=== PATIENT | male | born 1965 | race Two or more races ===

== ENCOUNTER 2020-04-29 17:58 | Emergency (ER) | payer MEDICAID ==
[~2020-04-29] VITALS: Ht 172.7 cm; Wt 81.0 kg
[2020-04-29 18:00] VITALS: BP 181/78
[2020-04-29] MEDS ORDERED: ACETAMINOPHEN 325MG TABLET PO STA (18:36)
== END 2020-04-29 20:33 | disposition home or self-care (01) ==
LOC: ER 17:58
DX: S09.8XXA Other specified injuries of head, initial encounter (principal); Y08.89XA Assault by other specified means, initial encounter; Y93.89 Activity, other specified; Y92.89 Other specified places as the place of occurrence of the external cause; Y99.8 Other external cause status; M79.18 Myalgia, other site; E11.9 Type 2 diabetes mellitus without complications; I10 Essential (primary) hypertension
CPT/HCPCS: 82962; 93005; 99284